=== PATIENT | male | born 2005 | race Caucasian/White ===

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

== ENCOUNTER 2023-06-30 11:34 | Emergency (ER) | payer SELFPAY ==
[2023-06-30 11:36] VITALS: BP 119/60; PULSE 76; RESP 16; TEMP 36.4; O2SAT 97; BMI 23.8
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
[2023-06-30 13:38] VITALS: BP 129/75; PULSE 74; RESP 24; O2SAT 100
== END 2023-06-30 14:04 | disposition home or self-care (01) ==
PROVIDERS: Emergency Provider Physician Assistant Medical
DX: S62.304A Unspecified fracture of fourth metacarpal bone, right hand, initial encounter for closed fracture (principal); W51.XXXA Accidental striking against or bumped into by another person, initial encounter
CPT/HCPCS: 73130; 99283

== ENCOUNTER 2023-07-10 17:27 | Emergency (ER) | payer SELFPAY ==
[2023-07-10 17:48] VITALS: BP 114/57; PULSE 88; RESP 18; TEMP 36.9; O2SAT 100; BMI 24.4
--- NOTE | 2023-07-10 18:22 | ED.RECABL ---
HPI - Recheck/Abnormal Lab/Rx <Josi Riojas PA-C - Last Filed: 07/10/23 18:38> General Chief Complaint: Recheck/Abnormal Lab/Rx Stated Complaint: got cast wet in shower, wants it replaced Time Seen by Provider: 07/10/23 18:17 Source: patient Mode of arrival: Ambulatory History of Present Illness HPI narrative: Patient is a 18-year-old male presenting for evaluation of his cast after getting it wet. He was seen in the emergency department 10 days ago and diagnosed with a fracture of his metacarpal. He followed up with Orthopedic and received a cast. He states that a 1/2 hour ago, while in the shower he got part of his cast wet. He is presenting to the ER asking if he can receive a new cast. Related Data Previous Rx's Medication Instructions Recorded cephalexin 500 mg capsule 500 mg PO TID #15 caps 11/10/20 Allergies Allergy/AdvReac Type Severity Reaction Status Date / Time No Known Drug Allergies Allergy Verified 06/30/23 11:36 Review of Systems <Josi Riojas PA-C - Last Filed: 07/10/23 18:38> Review of Systems Narrative: See HPI Patient History <Josi Riojas PA-C - Last Filed: 07/10/23 18:38> Social History Smoking Status: Current some day smoker Smoking Status: Current some day smoker alcohol intake frequency: other Substance Use Type: marijuana Exam <Josi Riojas PA-C - Last Filed: 07/10/23 18:38> Initial Vital Signs Initial Vital Signs: Vital Signs Temperature 98.4 F 07/10/23 17:48 Pulse Rate 88 07/10/23 17:48 Respiratory Rate 18 07/10/23 17:48 Blood Pressure 114/57 L 07/10/23 17:48 Pulse Oximetry 100 07/10/23 17:48 Oxygen Delivery Method Room Air 07/10/23 17:48 GENERAL: 18 year old patient appears stated age. Well-developed patient, in no acute distress. RESPIRATORY: Speaking comfortably normal tone of voice without any increased work of breathing. EXTREMITIES: No edema noted over 1st 3 fingers, CSM intact, good range of motion noted, cast feels firm, light dampness by patient's palm, no wet this noted to be extending through to proximal end of cast NEURO: AOx3. SKIN: No rash or erythema of visible areas <Jing Angeles MD - Last Filed: 07/10/23 20:18> Initial Vital Signs Initial Vital Signs: Vital Signs Temperature 98.4 F 07/10/23 17:48 Pulse Rate 88 07/10/23 17:48 Respiratory Rate 18 07/10/23 17:48 Blood Pressure 114/57 L 07/10/23 17:48 Pulse Oximetry 100 07/10/23 17:48 Oxygen Delivery Method Room Air 07/10/23 17:48 Course <Josi Riojas PA-C - Last Filed: 07/10/23 18:38> Vital Signs Vital signs: Vital Signs - 8 hr 07/10/23 17:48 Temperature 98.4 F Pulse Rate 88 Respiratory Rate 18 Blood Pressure 114/57 L Pulse Oximetry 100 Oxygen Delivery Method Room Air <Jing Angeles MD - Last Filed: 07/10/23 20:18> Vital Signs Vital signs: Vital Signs - 8 hr 07/10/23 17:48 Temperature 98.4 F Pulse Rate 88 Respiratory Rate 18 Blood Pressure 114/57 L Pulse Oximetry 100 Oxygen Delivery Method Room Air MDM - Recheck/Abnormal Lab/Rx <Josi Riojas PA-C - Last Filed: 07/10/23 18:38> MDM Narrative Medical decision making narrative: Patient is a 18-year-old male presenting to discuss whether he can have his cast change since he got it wet today by accident. Evaluation of cast shows that it appears stable with light dampness by his palm. I advised him to follow up with his orthopedic 1st thing tomorrow to discuss with them whether he needs his cast to be changed. He showed evidence of good circulation motion and strength of his fingers, and no adverse skin changes noted. He is agreeable to following up with his orthopedic. Multiple etiologies for patient's symptoms considered including, but not limited to: Skin changes from dampness, loose cast, compression syndrome Prior Charts reviewed: ER visit 06/30/2023 Imaging reviewed: X-ray from 06/30/2023 shows 4th metacarpal fracture. Findings and discharge diagnosis discussed with patient/family followed by verbalization of understanding Return precautions discussed with patient/family whom verbalize understanding of diagnosis and plan Discharge Plan Departure Patient Disposition: Home Clinical Impression: Cast in place on extremity Activity Restrictions/Additional Instructions: Thank you for coming in today for your care. I recommend that you follow up with your orthopedic tomorrow morning to discuss whether your calf needs to be replaced or not due to the wetness noticed on exam today. It does not appear that this should cause a problem to your skin at this time. Your cast feels intact and you have good circulation in her fingers and good strength and range of motion. I recommend that you follow up with your orthopedic. Please monitor for signs of numbness, swelling of your fingers, increased pain, skin redness or other concerning signs or symptoms and follow up in the ER if these should develop. Prescriptions: No Action cephalexin 500 mg capsule 500 mg PO TID Qty: 15 0RF Referrals: Miscellaneous,Doctor, [Primary Care Provider] - Stand Alone Forms: Patient Portal/API ED Sign-out <Jing Angeles MD - Last Filed: 07/10/23 20:18> Cosign ED Attending Cosbluature Attestation: I did not see this patient. I was available all times for consultation.
== END 2023-07-10 18:38 | disposition home or self-care (01) ==
PROVIDERS: Emergency Provider Physician Assistant
DX: S62.309D Unspecified fracture of unspecified metacarpal bone, subsequent encounter for fracture with routine healing (principal)
CPT/HCPCS: 99281

== ENCOUNTER 2023-07-28 14:36 | Emergency (ER) | payer MEDICAID, SELFPAY ==
[2023-07-28 14:49] VITALS: BP 129/51; PULSE 95; RESP 16; TEMP 37; O2SAT 98; BMI 22.4
--- NOTE | 2023-07-28 15:29 | ED.LOWEXIN ---
HPI - Extremity Injury (Lower) <Genevieve Rosario PA-C - Last Filed: 07/28/23 16:59> General Chief Complaint: Extremity Injury, Lower Stated Complaint: cut pabon open Time Seen by Provider: 07/28/23 15:05 Source: patient Mode of arrival: Ambulatory History of Present Illness HPI Narrative: 18-year-old male here for a laceration in his left pabon. States he fell into a shrimp box at work and sustained a laceration. This occurred at 1pm today. He had his tetanus updated 2 years ago when he had a laceration repaired. Bleeding is well controlled and has no other concerns at this time. Related Data Previous Rx's Medication Instructions Recorded cephalexin 500 mg capsule 500 mg PO TID #15 caps 11/10/20 Allergies Allergy/AdvReac Type Severity Reaction Status Date / Time No Known Drug Allergies Allergy Verified 06/30/23 11:36 Review of Systems <Genevieve Rosario PA-C - Last Filed: 07/28/23 16:59> Review of Systems ROS Unobtainable: All systems reviewed & are unremarkable except as noted in HPI and below Patient History <Genevieve Rosario PA-C - Last Filed: 07/28/23 16:59> Social History Smoking Status: Current some day smoker Smoking Status: Current some day smoker alcohol intake frequency: other Substance Use Type: marijuana Exam <Genevieve Rosario PA-C - Last Filed: 07/28/23 16:59> Narrative Exam Narrative: GENERAL: Well-developed, well-nourished, appears stated age. In no acute distress HEAD: Atraumatic. Normocephalic. EYES: Pupils equal round and reactive. Extraocular motions intact. No scleral icterus. No injection or drainage. ENT: Nose without bleeding, purulent drainage. Airway patent. NECK: Trachea midline. Non tender RESPIRATORY: Respiratory rate and effort normal EXTREMITIES: No edema or joint tenderness. NEURO: AOx3. SKIN: 6 cm crescent shaped laceration on the left anterior leg just below the knee. Wound edges are easily approximated and bleeding is minimal at this time. No foreign body noted. Wound is not dirty Initial Vital Signs Initial Vital Signs: Vital Signs Temperature 98.6 F 07/28/23 14:49 Pulse Rate 95 H 07/28/23 14:49 Respiratory Rate 16 07/28/23 14:49 Blood Pressure 129/51 L 07/28/23 14:49 Pulse Oximetry 98 07/28/23 14:49 Oxygen Delivery Method Room Air 07/28/23 14:49 <DO Feli Orosco Last Filed: 07/29/23 08:03> Initial Vital Signs Initial Vital Signs: Vital Signs Temperature 98.6 F 07/28/23 14:49 Pulse Rate 95 H 07/28/23 14:49 Respiratory Rate 16 07/28/23 14:49 Blood Pressure 129/51 L 07/28/23 14:49 Pulse Oximetry 98 07/28/23 14:49 Oxygen Delivery Method Room Air 07/28/23 14:49 Procedures <ADILSON Butt Last Filed: 07/28/23 16:59> Laceration Repair Laceration 1: Time of procedure: 16:00 Site: lower extremity (Left anterior upper pabon) Size (cm): 6 Description: linear ([place] shaped) Depth: simple, single layer (Through subcutaneous layer) Local Anesthetic: lidocaine 1% and with epi Amount of anesthesia used (mL): 5 Pre-repair: wound explored and irrigated extensively Skin layer closed with: nylon Skin layer suture size: 4-0 Number of sutures: 7 Technique: simple, interrupted Course <ADILSON Butt Last Filed: 07/28/23 16:59> Vital Signs Vital signs: Vital Signs - 8 hr 07/28/23 14:49 Temperature 98.6 F Pulse Rate 95 H Respiratory Rate 16 Blood Pressure 129/51 L Pulse Oximetry 98 Oxygen Delivery Method Room Air <DO Feli Orosco Last Filed: 07/29/23 08:03> Vital Signs Vital signs: Vital Signs - 8 hr 07/28/23 14:49 Temperature 98.6 F Pulse Rate 95 H Respiratory Rate 16 Blood Pressure 129/51 L Pulse Oximetry 98 Oxygen Delivery Method Room Air MDM - Extremity Injury (Lower) <ADILSON Butt Last Filed: 07/28/23 16:59> MDM Narrative Medical decision making narrative: Patient was seen for laceration in his left anterior leg just below the knee. The wound 6 cm in linear but crescent shaped so it was gaping upon examination but the edges were very easily approximated. Patient is up-to-date on his tetanus. There was no concern of tendon or deeper injury to the area. No imaging indicated. Laceration repaired with 7 interrupted sutures and patient tolerated this procedure well. Thorough wound care instructions were given and patient instructed to follow up in 10 days for suture removal. Educated patient on signs of infection and when to return for re-evaluation. Discharge Plan Departure Patient Disposition: Home Clinical Impression: Laceration of left leg Qualifiers: Encounter type: initial encounter Qualified Code(s): S81.812A - Laceration without foreign body, left lower leg, initial encounter Instructions: DI for Laceration Repair Activity Restrictions/Additional Instructions: Thank you for choosing us to care for you today. You sustained a laceration to her left leg which was repaired with 7 stitches. Please keep the area clean and dry. Clean the area gently with soap and water twice daily, pat dry, and apply a bandage as directed. Please monitor for signs of infection including redness, swelling, discharge from the wound, increased pain. Please avoid bending her knee much and do not do any squatting, kneeling, etc.. Follow up in 10 days for suture removal. Prescriptions: No Action cephalexin 500 mg capsule 500 mg PO TID Qty: 15 0RF Referrals: Miscellaneous,Doctor, MD [Primary Care Provider] - Stand Alone Forms: Patient Portal/API ED Sign-out <Barbara Dave DO - Last Filed: 07/29/23 08:03> Cosign ED Attending Dhara Attestation: I was available for consultation.
[2023-07-28 17:04] VITALS: BP 116/58; PULSE 86; RESP 18; O2SAT 97
== END 2023-07-28 16:50 | disposition home or self-care (01) ==
PROVIDERS: Emergency Provider Physician Assistant
DX: S81.812A Laceration without foreign body, left lower leg, initial encounter (principal); W18.09XA Striking against other object with subsequent fall, initial encounter
CPT/HCPCS: 12002; 99281; 99283

== ENCOUNTER 2024-05-06 15:24 | Emergency (ER) | payer MEDICAID, SELFPAY ==
[2024-05-06 15:33] VITALS: BP 134/99; PULSE 80; RESP 16; TEMP 36.4; O2SAT 99; BMI 29.8
[2024-05-06 16:17] LABS: Influenza A - CEPHEID Flu A NEGATIVE (NEGATIVE); Influenza B - CEPHEID Flu B NEGATIVE (NEGATIVE); Respiratory Syncytial Virus Negative (Negative)
[2024-05-06 16:20] LABS: COVID-19 CEPHEID 4-PLEX PCR Negative (Negative)
== END 2024-05-06 18:45 | disposition left against medical advice (07) ==
PROVIDERS: Emergency Medicine; Emergency Provider Emergency Medicine
DX: R11.10 Vomiting, unspecified (principal); R05.9 Cough, unspecified; R51.9 Headache, unspecified; R53.1 Weakness
CPT/HCPCS: 87635; 87400 ×2; 87420; 0241U; 99281